=== PATIENT | female | born 2005 | race Hispanic/Latino ===

== ENCOUNTER 2023-06-02 12:39 | Emergency (ER) | payer OTHER, BC ==
[2023-06-02] MEDS ORDERED: Ketorolac Tromethamine 30 MG/ML VIAL ONE (15:00)
== END 2023-06-02 15:15 | disposition home or self-care (01) ==
LOC: ERS 12:39
DX: M25.562 Pain in left knee (principal); W18.30XA Fall on same level, unspecified, initial encounter; Y92.29 Other specified public building as the place of occurrence of the external cause
CPT/HCPCS: 96372; J1885